=== PATIENT | female | born 1975 | race Caucasian/White ===

== ENCOUNTER → 2018-03-16 10:08 | Outpatient (CLI) | payer BC, SELFPAY ==
--- NOTE | 2018-03-16 10:12 | US_ITS ---
US abdomen limited History: Ordering Physician:Reba Mueller Patient Age: 42 years Comparison:None Findings: Pancreas:Unremarkable. No obvious mass or abnormal fluid collection. No ductal dilatation Liver:No focal liver lesions demonstrated. Homogeneous echogenicity. No intrahepatic biliary ductal dilatation evident Right Kidney:Unremarkable. Normal size and echogenicity. No hydronephrosis Gallbladder:No gallstones, gallbladder wall thickening, pericholecystic fluid, or biliary dilatation. Impression:Negative gallbladder/right upper quadrant ultrasound
== END ==
PROVIDERS: PCP Nurse Practitioner; Visit Provider Nurse Practitioner
DX: R10.84 Generalized abdominal pain (principal)
CPT/HCPCS: 76705

== ENCOUNTER → 2018-10-18 15:27 | Outpatient (CLI) | payer BC, SELFPAY ==
--- NOTE | 2018-10-18 15:30 | MR_ITS ---
MR head/brain wo con HISTORY: Dizziness, M.D. imbalance, headache ITS.REASON: DIZZINESS, BALANCE PROBLEM ORDERING PHYSICIAN: Ellen Mello APRN PATIENT AGE: 42 years Comparison: None TECHNIQUE: Standard multiplanar multiecho sequences are performed without contrast. FINDINGS: No midline shift, mass effect, intracranial hemorrhage, or hydrocephalus is evident. No evidence of acute infarction. The cerebellopontine angles, cerebellum, and brainstem are unremarkable. There are a few subcortical T2 white matter hyperintensities apparent which are nonspecific in the left parietal and frontal region. The pituitary, optic chiasm, corpus callosum, and craniocervical junction have an unremarkable appearance. No mastoid effusion or sinus air-fluid level. IMPRESSION: 1. No acute intracranial findings. 2. Only a few subcortical T2 white matter hyperintensities in the left frontoparietal region nonspecific.
== END ==
PROVIDERS: PCP Nurse Practitioner Family; Visit Provider Nurse Practitioner Family
DX: R26.89 Other abnormalities of gait and mobility (principal); R42 Dizziness and giddiness
CPT/HCPCS: 70551

== ENCOUNTER → 2018-12-20 14:33 | Outpatient (CLI) | payer BC, SELFPAY ==
--- NOTE | 2018-12-20 14:38 | XR_ITS ---
PROCEDURE: XR FOOT WT BEARING LT 3V CLINICAL INDICATION: pain COMPARISON: No exams were available for comparison FINDINGS: No fracture or dislocation. No lytic or blastic change. There is normal mineralization. The joint spaces are well-preserved. No significant degenerative/arthritic changes. No erosive changes evident. Other findings:None. IMPRESSION: No acute findings. Dictated by: Zane Vega MD 12/20/2018 15:07 Electronically signed by Zane Vega MD in [place] 12/20/2018 15:07
--- NOTE | 2018-12-20 14:38 | XR_ITS ---
PROCEDURE: XR FOOT WT BEARING RT 3V CLINICAL INDICATION: pain COMPARISON: No exams were available for comparison FINDINGS: No fracture or dislocation. No lytic or blastic change. There is normal mineralization. The joint spaces are well-preserved. No significant degenerative/arthritic changes. No erosive changes evident. Other findings:There is a small bone island in the calcaneus with a small calcaneal spur noted IMPRESSION: No acute findings. Dictated by: Zane Vega MD 12/20/2018 15:08 Electronically signed by Zane Vega MD in [place] 12/20/2018 15:08
== END ==
PROVIDERS: PCP Nurse Practitioner; Visit Provider Podiatrist
DX: M79.672 Pain in left foot (principal); M79.671 Pain in right foot
CPT/HCPCS: 73630

== ENCOUNTER → 2020-05-03 12:29 | Outpatient (CLI) | payer BC, SELFPAY ==
--- NOTE | 2020-05-03 12:44 | XR_ITS ---
PROCEDURE: XR CERVICAL SPINE 5V CLINICAL INDICATION: CERVICALGIA The the COMPARISON: No exams were available for comparison FINDINGS: No fracture or dislocation. No lytic or blastic change. There is normal mineralization. There is straightening/reversal of the normal lordosis which may be due to patient positioning or muscle spasm. Other findings:The neural foramina are widely patent. The disc spaces are well preserved IMPRESSION: There is straightening/reversal of the normal lordosis which may be due to patient positioning or muscle spasm. Otherwise negative Dictated by: Zane Vega MD 05/03/2020 13:55 Zane Vega MD in [place] 05/03/2020 13:55
== END ==
PROVIDERS: PCP Nurse Practitioner Family; Visit Provider Nurse Practitioner Family
DX: M54.2 Cervicalgia (principal)
CPT/HCPCS: 72050

== ENCOUNTER → 2022-06-17 12:34 | Outpatient (CLI) | payer BC, SELFPAY ==
[2022-06-17 12:44] LABS: Adenovirus F 40/41, stool Not Detected (NotDetected); Astrovirus Not Detected (NotDetected); Campylobacter Not Detected (NotDetected); Cryptosporidium Not Detected (NotDetected); Cyclospora Cayetanesis Not Detected (NotDetected); Entamoeba histolytica Not Detected (NotDetected); Enteroaggregative E coli Not Detected (NotDetected); Enteropathogenic E coli Not Detected (NotDetected); Enterotoxigenic E coli Not Detected (NotDetected); Giardia lamblia Not Detected (NotDetected); Norovirus Not Detected (NotDetected); Plesimonas Shigalloides, PCR Not Detected (NotDetected); Salmonella, PCR Not Detected (NotDetected); Sapovirus Not Detected (NotDetected); Shiga-like toxin E coli Not Detected (NotDetected); Shigella Enterovasive E coli Not Detected (NotDetected); Vibrio Cholerae Not Detected (NotDetected); Vibrio, PCR Not Detected (NotDetected); Yersinia Entercolitica, PCR Not Detected (NotDetected)
[2022-06-17 13:11] LABS: Basophils # 0.1 K/mm3 (0-0.2); Basophils % 2.3 % (0.1-2.0); Eosinophils # 0.1 K/mm3 (0.0-0.4); Eosinophils % 1.9 % (0.1-12.0); Hematocrit 35.7 % (37.0-47.0); Lymphocytes # 1.8 K/mm3 (0.7-4.5); Lymphocytes % 64.2 % (10-50); Mean Corpuscular HGB Conc 33.7 g/dL (31.8-35.4); Mean Corpuscular Hemoglobin 29.1 pg (27.0-31.2); Mean Corpuscular Volume 86.3 fl (81-99); Mean Platelet Volume 8.2 fl (7.4-10.4); Monocytes # 0.2 K/mm3 (0.1-1.0); Neutrophils # 0.7 K/mm3 (1.8-7.8); Neutrophils % 23.6 % (37.0-80.0); Platelet Count 334 K/mm3 (142-424); Red Blood Count 4.14 M/mm3 (4.20-5.40); Red Cell Distribution Width 14.7 % (11.5-17.5); White Blood Count 2.8 K/mm3 (4.8-10.8)
[2022-06-17 13:12] LABS: MANUAL DIFFERENTIAL MANUAL DIFFERENTIAL (MANUAL DIFF)
[2022-06-17 13:56] LABS: Chloride 104 mmol/L (98-107)
[2022-06-17 13:57] LABS: Potassium 3.8 mmoL/L (3.5-5.1); Sodium 140 mmol/L (136-145)
[2022-06-17 13:59] LABS: Alanine Aminotransferase 26 U/L (12-78); Amylase 49 U/L (30-110); Anion Gap 10.8 mEq/L (5-15); Aspartate Amino Transferase 21 U/L (14-36); Blood Urea Nitrogen 12 mg/dl (7-17); Carbon Dioxide 29 mmol/L (22.0-30.0); Estimated Glomerular Filt Rate 108 ml/min (>60); GFR (African American) 131 ML/MIN (>60)
[2022-06-17 14:00] LABS: Albumin Level 3.8 g/dl (3.5-5.0); Albumin/Globulin Ratio 1.5 (1.1-1.8); Alkaline Phosphatase 51 U/L (38-126); Bilirubin,Total 0.2 mg/dl (0.2-1.3); Calcium 8.3 mg/dl (8.4-10.2); Globulin 2.5 g/dL (1.3-3.2); Glucose 87 mg/dl (74-100); Lipase 204 U/L (23-300); Total Protein,Serum 6.3 g/dl (6.3-8.2)
[2022-06-17 16:05] LABS: Eosinophils % 2 % (0-3); Lymphocytes % 78 % (10-50); Monocytes % 8 % (2-9); Neutrophils % 12 % (42-76); Platelet Estimate Normal; RBC Morphology Normal; Total Cells Counted 100
[2022-06-18 00:19] LABS: Rotavirus A Detected (NotDetected)
[2022-06-18 08:39] LABS: Clostridium Difficile A/B, PCR Detected (NotDetected)
== END ==
PROVIDERS: PCP Nurse Practitioner Family; Visit Provider Nurse Practitioner Family
DX: R10.10 Upper abdominal pain, unspecified (principal); R19.7 Diarrhea, unspecified; A08.0 Rotaviral enteritis; A04.72 Enterocolitis due to Clostridium difficile, not specified as recurrent
CPT/HCPCS: 36415; 80053; 82150; 83690; 85007; 85025; 87507

== ENCOUNTER → 2022-10-05 13:40 | Outpatient (CLI) | payer BC, SELFPAY ==
--- NOTE | 2022-10-05 13:47 | XR_ITS ---
FINAL REPORT CLINICAL HISTORY: DORSALGIA OF LUMBOSACRAL REGION COMPARISON: None FINDINGS: 5 views of the lumbar spine were obtained. There is no evidence of fracture or dislocation. The vertebral alignment is normal. Mild degenerative change with small osteophytes. Mild leftward curvature of the lumbar spine. No paraspinous soft tissue abnormalities identified. IMPRESSION: No acute bony abnormality. Reviewed, Interpreted and Dictated by Rigoberto Contreras III, MD Transcribed by Mariaelena Post Authenticated and [facility]
== END ==
PROVIDERS: PCP Nurse Practitioner Family; Visit Provider Nurse Practitioner Family
DX: M54.50 Low back pain, unspecified (principal)
CPT/HCPCS: 72110

== ENCOUNTER 2023-05-24 21:54 | Outpatient (CLI) | payer BC, SELFPAY ==
[2023-05-24 18:03] LABS: Influenza A, PCR Not Detected (NotDetected); Influenza B, PCR Not Detected (NotDetected)
[2023-05-24 18:58] LABS: Coronavirus 19, PCR Detected (NotDetected)
== END 2023-05-24 23:59 ==
LOC: LAB.DROPOF 21:54
PROVIDERS: PCP Student in an Organized Health Care Education/Training Program; Visit Provider Student in an Organized Health Care Education/Training Program
DX: J34.89 Other specified disorders of nose and nasal sinuses (principal); U07.1 COVID-19
CPT/HCPCS: 87636

== ENCOUNTER 2023-06-01 19:40 | Outpatient (CLI) | payer BC, SELFPAY ==
[2023-06-01 18:24] LABS: Influenza A, PCR Not Detected (NotDetected); Influenza B, PCR Not Detected (NotDetected)
[2023-06-01 20:04] LABS: Coronavirus 19, PCR Detected (NotDetected)
== END 2023-06-01 23:59 | disposition home or self-care (01) ==
LOC: LAB.DROPOF 19:41
PROVIDERS: PCP Student in an Organized Health Care Education/Training Program; Visit Provider Student in an Organized Health Care Education/Training Program
DX: U07.1 COVID-19; J34.89 Other specified disorders of nose and nasal sinuses; R51.9 Headache, unspecified
CPT/HCPCS: 87636

== ENCOUNTER 2024-12-11 15:53 | Emergency (ER) | payer BC, SELFPAY ==
[2024-12-11 16:11] VITALS: BP 126/77; PULSE 74; RESP 18; TEMP 36.7; O2SAT 99; BMI 28.7
[2024-12-11 16:31] VITALS: BP 117/77; PULSE 72; O2SAT 99
--- OUTSIDE RECORDS SUMMARY | 2024-12-11 16:32 | XMS_ITS | Encounter Summary ---
Author Organization Healthcare Address [address] [place] [address] Care Team Providers Care Property Field Inspector Name Role Phone Parvin Ramirez MD Primary Care Provider [phone] Encounter Details Date Type Department Care Team (Late st Contact Info) Description 12/07/2023 Outside Procedure External Location [address] [place] [address] Parvin Ramirez MD [address] [place] [id number] Social History Tobacco Use Types Packs/Day Years Used Date Smoking Tobacco: Never Passive Smoke Exposure: Never Smokeless Tobacco: Never Humiliation, Afraid, Rape, and Kick questionnair e Answer Date Recorded Within the last year, have y ou been afraid of your partner or ex-partner? No 12/07/2023 Within the last year, have y ou been humiliated or emotionally abused in other ways by your partner or ex-partner? No Within the last year, have y ou been kicked, hit, slapped, or otherwise physically hurt by your partner or ex-partner? No 12/07/2023 Within the last year, have y ou been raped or forced to have any kind of sexual activity by your partner or ex-partner? No 12/07/2023 PHQ-2 Answer Date Recorded Patient Health Questionnaire-2 Score 0 12/07/2023 Hunger Vital Sign Answer Date Recorded Within the past 12 months, y ou worried that your food would run out before you got the money to buy more. Never true 12/07/19 24 Within the past 12 months, t he food you bought just didn't last and you didn't have money to get more. Never true 12/07/2023 PRAPARE - Transportation Answer Date Re corded In the past 12 months, has l ack of transportation kept you from medical appointments or from getting medications? No 11/11 In the past 12 months, has l ack of transportation kept you from meetings, work, or from getting things needed for daily living? No 12/07/2023 Housing Stability Vital Sign Answer Shaun e Recorded In the last 12 months, was t here a time when you were not able to pay the mortgage or rent on time? No 12/07/2023 Number of Places Lived in the Last Year Not on f ile 12/07/2023 In the last 12 months, was t here a time when you did not have a steady place to sleep or slept in a retirement (including now)? No 12/07/2023 Safety and Environment Answer Date Royal rded Do you worry that your child may have been physically abused? No 12/07/2023 Do you worry that your child may have been sexua lly abused? No 12/07/2023 Are there any guns kept in o r around your home or where your child spends time? No 12/07/2023 Guns Unloaded or Locked Away Not on file Utilities Answer Date Recorded In the past 12 months has th e electric, gas, oil, or water company threatened to shut off services in your home? No 12/07/2023 Comments Unknown Sex and Gender Information Value Date Recorded Sex Assigned at Female 11/27/2024 8:28 AM EDT Legal Sex Female 5:58 PM EDT Gender Identity Female 11/27/2024 8:28 AM EDT Sexual Orientation Not on file documented as of this encounter Functional Status * Over the past 2 weeks, how often have you been bothered by any of the following problems? Question Answer Date of Assessment Author Little interest or pleasure in doing things Not at all 12/07/2023 10:16 AM EDT Asia Edwards R N Feeling down, depressed, or hopeless Not at all 12/07/2023 10:16 AM EDT Asia Edwards R N Patient Health Questionnaire -2 Score 0 12/07/2023 10:16 AM EDT Asia Edwards R N documented as of this encounter Plan of Treatment Upcoming Encounters Date Type Department Care Team (Late st Contact Info) Description 12/21/2024 8:20 AM EDT Office Visit [facility] [address] [place] [address] Parvin Ramirez MD [address] [place] [address] documented as of this encounter Procedures Procedure Name Priority Date/Time Associated Diagnosis Comments XR LUMBAR SPINE 2 OR 3 VIEWS 12/07/2023 11:20 AM EDT documented in this encounter Results * XR Lumbar Spine 2 or 3 Views (12/07/2023 11:20 AM EDT) Anatomical Region Laterality Modality Spine, L-spine Digital Radiogra phy 12/07/2023 11:2 0 AM EDT Narrative 12/08/2023 2:05 PM EDT [address] [address] Name: TERI RAYA Exam Date: 12/07/2023 : 1975 Age 48 years Gender: F Physician: Parvin Ramirez Facility: [facility] Facility HSV: Outpatient Exam: LUMBAR SPINE 2 TO 3V EXAM: XR LUMBAR SPINE 2-3 views. CLINICAL HISTORY: back pain COMPARISON: None. TECHNIQUE: XR LUMBAR SPINE 2-3 VIEWS FINDINGS: No acute fracture or dislocation. Joint spaces are maintained. No internalized radiopaque foreign object. IMPRESSION: Unremarkable. Electronically signed by:Kwaku Nick MD12/08/2023 02:01 PM EDT Dictated By: Kwaku Nick Transcribed By: Transcribed On: 12/07/2023 11:49 AM Electronically signed by: Kwaku Nick 12/07/2023 Thank you for referring TERI RAYA to [facility]. Legally authenticated by [employer] [facility] 2023-12-07 11:49:55 Procedure Note Provider, [place] - 12/08/2023 [facility] [address] [place] [address] Name: TERI RAYA Exam Date: 12/07/2023 : 1975 Age 48 years Gender: F Physician: Parvin Ramirez Facility: [facility] Facility HSV: Outpatient Exam: LUMBAR SPINE 2 TO 3V EXAM: XR LUMBAR SPINE 2-3 views. CLINICAL HISTORY: back pain COMPARISON: None. TECHNIQUE: XR LUMBAR SPINE 2-3 VIEWS FINDINGS: No acute fracture or dislocation. Joint spaces are maintained. Nointernalized radiopaque foreign object. IMPRESSION: Unremarkable. Electronically signed by:Kwaku Nick MD12/08/2023 02:01 PM EDT RP Dictated By: Kwaku Nick Transcribed By: Transcribed On: 12/07/2023 11:49 AM Electronically signed by: Kwaku Nick 12/07/2023 Thank you for referring TERI RAYA to [facility]. Legally authenticated by [facility] [facility] 2023-12-07 11:49:55 us Parvin Ramirez MD IMG XR PROCEDURES Final Resul t documented in this encounter Visit Diagnoses Not on filedocumented in this encounter Additional Health Concerns Assessment Noted Time A Body Mass Index follow-up plan has been documented for the patient 12/07/2023 11:48 AM EDT documented as of this encounter Care Teams Property Field Inspector Relationship Specialty Start Date End Date Parvin Ramirez MD [address] [place] [address] PCP - General Family Medicine 12/07/23 documented as of this encounter
--- OUTSIDE RECORDS SUMMARY | 2024-12-11 16:32 | XMS_ITS | Clinical Summary ---
Author Organization [facility] Address [address] [place] [address] Care Team Providers Care Business Services Coordinator Name Role Phone Parvin Ramirez MD Primary Care Provider [phone] Allergies No known active allergies Medications cholecalciferol (Vitamin D3) 25 MCG (1000 UT) tablet Take 1 tablet (1,000 Units) by mouth 1 (one) time each day. Active losartan (Cozaar) 25 MG tablet Take 1 tablet (25 mg) by mouth 1 (one) time each day. as directed 90 tablet 3 4 Active filgrastim-sndz (Zarxio) 300 MCG/0.5ML Infuse into a venous catheter 1 (one) time each day if needed. Only as needed Active Multiple Vitamins-Minerals (Centrum Adults) tablet Centrum Adults Oral Tablet QTY: 0 tablet Days: 0 Refills: 0 Written: 12/16/23 Patient Instructions : 4 Active sertraline (Zoloft) 100 MG tabletIndications:G eneralized anxiety disorder Take 1.5 tablets (150 mg) by mouth 1 (one) time each day. 135 tablet 2 5 Active traZODone (Desyrel) 50 MG tabletIndications:G eneralized anxiety disorder Take 1 tablet (50 mg) by mouth at night if needed for sleep. 30 tablet 5 5 04/14/19 26 Active levothyroxine (Synthroid, Levoxyl) 88 MCG tabletIndications:A cquired hypothyroidism Take 1 tablet by mouth daily. 30 tablet 1 5 Active Active Problems Problem Noted Date Diagnosed Date Essential (primary) hypertension 12/07/2023 Anxiety disorder, unspecified 12/07/2023 Encounters Date Type Department Care Team Description 09/13/2024 Orders Only [facility] [address] [address] Shoshana Lynn Acquired hypothyroidism 09/13/2024 Results Follow-Up [facility] [address] [place] [address] Mary Swan MD 09/12/2024 Travel 09/12/2024 Orders Only [facility] [address] [place] [address] Parvin Ramirez MD Hypothyroidism, unspecified type (Primary Dx) from Last 3 Months Social History Tobacco Use Types Packs/Day Years Used Date Smoking Tobacco: Never Passive Smoke Exposure: Never Smokeless Tobacco: Never Alcohol Use Standard Drinks/Week Comments Never 0 (1 standard drink = 0.6 oz pur e alcohol) Humiliation, Afraid, Rape, and Kick questionnair e Answer Date Recorded Within the last year, have y ou been afraid of your partner or ex-partner? No 04/14/2024 Within the last year, have y ou been humiliated or emotionally abused in other ways by your partner or ex-partner? No Within the last year, have y ou been kicked, hit, slapped, or otherwise physically hurt by your partner or ex-partner? No 04/14/2024 Within the last year, have y ou been raped or forced to have any kind of sexual activity by your partner or ex-partner? No 04/14/2024 PHQ-2 Answer Date Recorded Patient Health Questionnaire-2 Score 0 04/14/2024 Hunger Vital Sign Answer Date Recorded Within the past 12 months, y ou worried that your food would run out before you got the money to buy more. Never true 04/14/19 25 Within the past 12 months, t he food you bought just didn't last and you didn't have money to get more. Never true 04/14/2024 PRAPARE - Transportation Answer Date Re corded In the past 12 months, has l ack of transportation kept you from medical appointments or from getting medications? No 06/2024 In the past 12 months, has l ack of transportation kept you from meetings, work, or from getting things needed for daily living? No 04/14/2024 Housing Stability Vital Sign Answer Shaun e [...] place to sleep or slept in a [place] (including now)? No 12/07/2023 PHQ-9 Answer Date Recorded Patient Health Questionnaire-9 Score 0 04/14/2024 Housing Stability Vital Sign Answer Shaun e Recorded In the last 12 months, was t here a time when you were not able to pay the mortgage or rent on time? No 04/14/2024 In the past 12 months, how m any times have you moved where you were living? 1 04/14/2024 At any time in the past 12 m [facility], were you homeless or living in a [place] facility (including now)? No 04/14/2024 Safety and Environment Answer Date Royal rded Do you worry that your child may have been physically abused? No 04/14/2024 Do you worry that your child may have been sexua lly abused? No 04/14/2024 Are there any guns kept in o r around your home or where your child spends time? No 04/14/2024 Guns Unloaded or Locked Away Not on file 06/2024 Utilities Answer Date Recorded In the past 12 months has th e electric, gas, oil, or water company threatened to shut off services in your home? No 04/14/2024 Comments Unknown Sex and Gender Information Value Date Recorded Sex Assigned at Female 11/27/2024 8:28 AM EDT Legal Sex Female 5:58 PM EDT Gender Identity Female 11/27/2024 8:28 AM EDT Sexual Orientation Not on file Last Filed Vital Signs Vital Sign Reading Time Taken Comments Blood Pressure 118/76 04/14/2024 3:02 PM EST Pulse 74 04/14/2024 3:02 PM EST Temperature 36.8 C (98.3 F) 04/14/2024 3:02 PM EST Respiratory Rate 17 04/14/2024 3:02 PM EST Oxygen Saturation 99% 04/14/2024 3:02 PM EST Inhaled Oxygen Concentration - - Weight 80.8 kg (178 lb 1.6 oz) 04/14/2024 3:02 P M EST Height 160 cm (5' 3 ) 04/14/2024 3:02 PM EST Body Mass Index 31.55 04/14/2024 3:02 PM EST Plan of Treatment Upcoming Encounters Date Type Department Care Team (Late st Contact Info) Description 12/21/2024 8:20 AM EDT Office Visit [facility] [address] [place] [address] Parvin Ramirez MD [address] [place] [address] Health Maintenance Due Date Last Done Comments [facility]-HIV Screening 1975 [facility]-Hepatitis C Screening 1975 [id number] Vaccine (#1) 1981 [facility]-DTaP,Tdap,and Td Vaccine s (1 - Tdap) 11/17/1995 [facility]-Hepatitis B Vaccines (1 of 3 - 19+ 3-dose series) 11/17/1995 [facility]-HPV/Cotest 2006 CT Colonography 2021 FIT-DNA 2021 FIT 2021 FOBT 2021 Sigmoidoscopy 2021 [facility]- SDOH Screenings 10/12/2024 [facility]-Adult SDOH Screenings 10/12/2024 04/14/2024 [facility]-/Child/Adol SDOH Screenings 10/12/2024 04/14/2024 [facility]-Influenza Vaccine (#1) 2024 [facility]-Depression Screening 04/14/2025 025, 04/14/2024 [facility]-Cervical Cancer Screening 02/09/2026 [facility]-Pap Smear 02/09/2026 02/09/2023, 11/05/2020, 09/20/2017 [facility]-Zoster Vaccines (1 of 2) 2026 Colonoscopy 10/17/2033 10/18/2023 [facility]-Colorectal Cancer Screening 10/17/2033 [facility]-Obesity Intervention Completed 025, 12/07/2023 HPV Vaccines Aged Out No longer eligi ble based on patient's age to complete this topic [facility]-HIB Vaccines Aged Out No longer e ligible based on patient's age to complete this topic [facility]-Hepatitis A Vaccines Aged Out No longer eligible based on patient's age to complete this topic [facility]-IPV Vaccines Aged Out No longer e ligible based on patient's age to complete this topic [facility]-Pneumococcal Vaccine: Pediatrics (0 to 5 Years) and At-Risk Patients (6 to 49 Years) Aged Out No longer eligible b ased on patient's age to complete this topic [facility]-Rotavirus Vaccines Aged Out No lo nger eligible based on patient's age to complete this topic Procedures Procedure Name Priority Date/Time Associated Diagnosis Comments TSH Routine 09/12/2024 3:44 PM EDT Hypothyroidism, unspecified type COLONOSCOPY EXTERNAL RESULT 10/18/2023 PAP SMEAR EXTERNAL RESULT 02/09/2023 from Last 3 Months or Most Recently Relevant to Health Maintenance Results * TSH (09/12/2024 3:44 PM EDT) Thyroid Stimulating Hormone, Plasma 1.95 0.40 - 4.20 uIU/mL 09/12/2024 7:25 PM EDT [facility] Blood Venous blood specimen / Unknown Venipuncture / Unknown 09/12/2024 3:44 PM EDT 09/12/2024 3:44 PM EDT Narrative [facility] - 09/12/2024 7:25 PM EDT Trimester Specific Ranges TSH ( IU/mL) 1st Trimester 0.1 - 3.0 2nd Trimester 0.19 - 4.06 3rd Trimester 0.3 - 3.7 us Parvin Ramirez MD LAB BLOOD ORDERABLES Final Re sult [facility] [address] [place] [address] * Colonoscopy External Result (10/18/2023) Anatomical Region Laterality Modality Endoscopy Narrative 10/18/2023 Ordered by an unspecified provider. us External Provider GI PROCEDURE ORDERABLES Final Result * Pap Smear External Result (02/09/2023) Narrative 02/09/2023 Ordered by an unspecified provider. us External Provider LAB CYTOLOGY ORDERABLES Final Result from Last 3 Months or Most Recently Relevant to Health Maintenance Insurance Care Teams Business Services Coordinator Relationship Specialty Start Date End Date Parvin Ramirez MD [facility] [place] [address] PCP - General Family Medicine 12/07/23
--- OUTSIDE RECORDS SUMMARY | 2024-12-11 16:32 | XMS_ITS | Clinical Summary ---
Author Organization [facility] Address [address] [place] [address] Care Team Providers Care Legal Manager Name Role Phone Provider, No Known Primary Care Provider Unavail able Social History Tobacco Use Types Packs/Day Years Used Date Smoking Tobacco: Never Assessed Abuse Screen Answer Date Recorded Unsafe at Home or Work/School Not on file Feels Threatened by Someone? Not on file 02/2023 Does Anyone Keep You from Co ntacting Others or Doint Things Outside the Home? Not on file 01/20/2023 Physical Sign of Abuse Present Not on file 1 Housing Stability Answer Date Recorded Current Living Arrangements Not on file 01/10 Potentially Unsafe Housing Conditions Not on nadia e 01/20/2023 Family and Community Support Answer Shaun e Recorded Help with Day-to-Day Activities Not on file 01/20/2023 Lonely or Isolated Not on file 01/20/2023 Employment Answer Date Recorded Do you want help finding or keeping work or a sadia b? Not on file 01/20/2023 Disabilities Answer Date Recorded Concentrating, Remembering, or Making Decisions Difficulty Not on file 01/20/2023 Doing Errands Independently Difficulty Not on fi le 01/20/2023 Education Answer Date Recorded Help with school or training? Not on file Preferred Language Not on file 01/20/2023 Comments Unknown Sex and Gender Information Value Date Recorded Sex Assigned at Not on file Legal Sex Female 10:32 AM EST Gender Identity Not on file Sexual Orientation Not on file Plan of Treatment Health Maintenance Due Date Last Done Comments ANNUAL PHYSICAL 1975 Annual Gynecologic Pelvic an d Breast Exam 1975 HEPATITIS C SCREENING 1975 TDAP/TD VACCINES (1 - Tdap) 11/17/1995 MAMMOGRAM 2016 COLOGUARD 2021 COLON CANCER SCREENING 5 YEA R SIGMOIDOSCOPY 2021 COLONOSCOPY [address] CANCER SCREENING [address] COLONOGRAPHY 2021 FECAL OCCULT BLOOD TEST 2021 FIT Testing (1 year) 2021 COVID-19 Vaccine ( - 2023-2 5 season) 2023 INFLUENZA VACCINE 01/10/2025 Pneumococcal Vaccine 0-49 Aged Out No longer eligible based on patient's age to complete this topic [place] [place] [address] PPO Care Teams Legal Manager Relationship Specialty Start Date End Date Provider, [place] [address] PCP - General Obstetrics and Gynecology 09/20/17
--- OUTSIDE RECORDS SUMMARY | 2024-12-11 16:32 | XMS_ITS | Encounter Summary ---
Author Organization [facility] Address [address] [place] [address] Care Team Providers Care Roofer Applicator Name Role Phone Parvin Ramirez MD Primary Care Provider [phone] Encounter Details Date Type Department Care Team (Late st Contact Info) Description 09/13/2024 Results Follow-Up [facility] [address] [place] [address] Mary Swan MD [address] [place] [address] Social History Tobacco Use Types Packs/Day [...] place to sleep or slept in a halfway (including now)? No 12/07/2023 PHQ-9 Answer Date [...] any time in the past 12 m [facility], were you homeless or living in a halfway (including now)? No 04/14/2024 Safety and Environment [...] on file documented as of this encounter Plan of Treatment Upcoming Encounters Date Type Department Care Team (Late st Contact Info) Description 12/21/2024 8:20 AM EDT Office Visit [facility] [address] [place] [address] Parvin Ramirez MD [address] [place] [address] documented as of this encounter Visit Diagnoses Not on filedocumented in this encounter Additional Health Concerns Assessment Noted Time PHQ-9 Depression Total Score: 0 04/14/19 25 3:05 PM EST A Body Mass Index follow-up plan has been documented for the patient 04/14/2024 3:53 PM EST documented as of this encounter Care Teams Roofer Applicator Relationship Specialty Start Date End Date Parvin Ramirez MD [address] [place] [address] PCP - General Family Medicine 12/07/23 documented as of this encounter
--- NOTE | 2024-12-11 16:46 | PC.NURSE ---
Pt examined by provider w/ nurse at bedside as well.
--- NOTE | 2024-12-11 17:02 | ED_ITS ---
Discharge Plan Disposition Patient Disposition: Home, Self-Care Condition: Good Prescriptions Prescriptions: New hydrocortisone [Anusol-HC] 2.5 % cream with perineal applicator 1 applic [place] BID Qty: 30 0RF No Action levothyroxine 50 mcg tablet PO Qty: 90 tbo-filgrastim 300 mcg/0.5 mL syringe SQ Qty: 2 losartan 25 mg tablet 25 mg PO DAILY amoxicillin-pot clavulanate 875-125 mg tablet 1 tab PO BID 10 Days Qty: 20 0RF sertraline 100 mg tablet 100 mg PO DAILY Referrals Follow up/Referrals: elizabeth [Other] - See instructions Rigoberto Vo MD [Staff Physician, General Surgery] - See instructions Activity Restrictions/Add. Instructions Additional Instructions/Restrictions: You were seen for a hemorrhoid. Please use the prescribed ointment. Follow up with general surgery this week. Clinical Impressions Clinical Impression: Hemorrhoid Instructions Patient Instructions: DI for Hemorrhoids Print Language Print Language: Divehi Discharge ED Provider: Carlos Mendoza General Adult HPI <DEANNA Moran - Last Filed: 12/11/24 17:05> General Chief complaint: PAIN Stated complaint: Hemorrhoids Time Seen by Provider: 12/11/24 16:28 Mode of Arrival: Ambulatory Source of Information: Patient Description of Symptoms (Recalled from ER Triage Doc. by RN): Pt presents for evaluation hemorrhoids that she has had x1.5 weeks. Pt states she has had OTC medications but has not had relief History of Present Illness HPI narrative: Patient presents complaining of a hemorrhoid for the past 1 week. She has had some mild bleeding with wiping after bowel movements. She has some pain and itching. She has been using witch jean carlos and hemorrhoid cream without improvement. complaint: Hemorrhoid Onset (ago): week(s) (1) Location: buttocks Radiation: non-radiation Severity: mild Quality: burning Consistency: intermittent Relieving factors: none Exacerbating factors: other (Bowel movement) Related Data Home Medications ?Medication ?Instructions ?Recorded ?Confirmed levothyroxine 50 mcg tablet mcg PO #90 tabs 12/20/18 0 06/01/23 tbo-filgrastim 300 mcg/0.5 mL SQ #2 mL 12/20/18 subcutaneous syringe losartan 25 mg tablet 25 mg PO DAILY 03/05/2305/14 sertraline 100 mg tablet 100 mg PO DAILY 05/24/23 Previous Rx's ?Medication ?Instructions ?Recorded amoxicillin 875 mg-potassium 1 tab PO BID 10 days #20 tabs 06/01/23 clavulanate 125 mg tablet hydrocortisone 2.5 % topical cream 1 applic [place] BID #30 grams 12/11/24 with perineal applicator (Anusol-HC) Allergies Allergy/AdvReac Type Severity Reaction Status Date / Time No Known Allergies Allergy Verified 06/01/23 14:37 COUNT INCLUDES THE [facility] <DEANNA Moran - Last Filed: 12/11/24 17:05> COUNT INCLUDES THE [facility] Disclaimer: The information contained in this section may have been updated after the patient was seen, as this information can be updated by other users. Medical History History of depression Hypertension Discussed her isolated hypertension with the patient and that she stated, that it is because she doesn't feel good today and that she is sick . She will mention this to her PCP and have them to keep an eye on her blood pressure in the future. Hypothyroidism Neutropenia Surgical History No pertinent past surgical history Family History Family/Other No significant family history Social History Smoking Status: Never smoker alcohol intake: never substance use type: denies use current occupational status: employed Travel in the last 8 weeks?: None household members: family housing: house Have you lived/traveled outside [place] in past 30 days?: No Contact w/someone who lives/traveled outside [place] past 30 days?: No Exposure to someone with infectious disease in past 14 days?: No Do you have a fever (greater than 100.4 F or 38 C)?: No Have you tested positive for COVID-19?: No Exposed to someone with COVID-19 in past 14 days?: No Do you have a sore throat?: No Do you have a cough?: No Do you have any weakness?: No Do you have any diarrhea?: No Are you experiencing any unusual bleeding?: No Do you have any muscle aches/pain?: No Do you have any abdominal pain?: No Are you experiencing loss of taste or smell?: No Other Medical History Have you received the Flu Vaccine for this season: No Have you received the Pneumonia Vaccine: No <DEANNA Moran - Last Filed: 12/11/24 17:05> ROS Obtained: Yes Systems reviewed as appropriate & no additional complaints except as documented Physical Exam <DEANNA Moran - Last Filed: 12/11/24 17:05> General General appearance: alert and in no apparent distress Head Head exam: atraumatic and normocephalic Eye Eye exam: Present normal appearance and EOMI Chest Chest inspection: Present symmetric chest wall rise Respiratory Respiratory exam: Present normal lung sounds bilaterally; Absent wheezes or stridor Cardiovascular Cardiovascular exam: Present regular rate and normal rhythm; Absent systolic murmur Abdominal Exam Abdominal exam: Present soft; Absent distention, tenderness or guarding Rectal Exam Rectal exam: Present hemorrhoids (Approximately 2:00 there is a 1 cm x 3 mm firm hemorrhoid, no erythema noted, mild tenderness) Extremities Exam Extremities exam: Present full ROM Neurological Exam Neurological exam: Present alert and oriented X3 Psychiatric Psychiatric exam: Present normal affect and normal mood Skin Skin exam: Present warm, dry and intact Medical Decision Making <DEANNA Moran Last Filed: 12/11/24 17:05> Medical Records Screening: Per USPSTF and CDC recommendations, given the prevalence of disease in our region, it is our hospital?s policy to screen for HIV and viral Hepatitis for all patients aged 18 and over and those with ongoing risk factors. Marciano Inquiry Pt receiving controlled substance: No Vital Signs: 12/11/24 16:11 12/11/24 16:31 Temperature 98.1 F Temperature Source Temporal Artery Scan Pulse Rate 72 Pulse Rate [Right] 74 Respiratory Rate 18 Blood Pressure 117/77 Blood Pressure [Right Arm] 126/77 Blood Pressure Mean [Right Arm] 93 Blood Pressure Source [Right Arm] Automatic Cuff Blood Pressure Position [Right Arm] Sitting 02 Sat by Pulse Oximetry 99 99 Medical Decision Narrative: In summary patient is a 49-year-old female who presents the emergency department for evaluation of hemorrhoid. Patient is hemodynamically upon arrival, afebrile. Hemorrhoid noted on exam. Differential diagnosis includes hemorrhoid, fissure, abscess. Hemorrhoid was visible on exam. Upon repeat evaluation patient is resting comfortably. Given this patient is appropriate for discharge home at this time with prescription for Anusol and follow-up with general surgery. Given return precautions.. <Carlos Mendoza MD - Last Filed: 12/11/24 17:12> Vital Signs: 12/11/24 16:11 12/11/24 16:31 Temperature 98.1 F Temperature Source Temporal Artery Scan Pulse Rate 72 Pulse Rate [Right] 74 Respiratory Rate 18 Blood Pressure 117/77 Blood Pressure [Right Arm] 126/77 Blood Pressure Mean [Right Arm] 93 Blood Pressure Source [Right Arm] Automatic Cuff Blood Pressure Position [Right Arm] Sitting 02 Sat by Pulse Oximetry 99 99 Medical Decision Narrative: In summary patient is a 49-year-old female who presents the emergency department for evaluation of hemorrhoid. Patient is hemodynamically upon arrival, afebrile. Hemorrhoid noted on exam. Differential diagnosis includes hemorrhoid, fissure, abscess. Hemorrhoid was visible on exam. Upon repeat evaluation patient is resting comfortably. Given this patient is appropriate for discharge home at this time with prescription for Anusol and follow-up with general surgery. Given return precautions.. I was consulted by the CHERRI, and we discussed the complexity of the problems being addressed. I approved the treatment and management plan for this patient's care in the emergency department, thus performing a substantive portion of the medical decision making. Work of hematologic labs and imaging was considered but given explainable diagnosis on exam will be deferred. Carlos Mendoza MD Critical Care <DEANNA Moran - Last Filed: 12/11/24 17:05> Critical Care Time Critical Care Time: No
[2024-12-11 17:49] VITALS: BP 148/75; PULSE 67; RESP 16; TEMP 36.8; O2SAT 100
== END 2024-12-11 17:50 | disposition home or self-care (01) ==
PROVIDERS: Emergency Provider Emergency Medicine; PCP Family Medicine
DX: K64.9 Unspecified hemorrhoids (principal)
CPT/HCPCS: 99282; 99283